=== PATIENT | male | born 1985 | race Caucasian/White ===

== ENCOUNTER 2017-09-07 17:08 | Emergency (ER) | payer BC ==
[~2017-09-07] VITALS: Ht 170.2 cm; Wt 91.0 kg
[2017-09-07 17:12] VITALS: BP 157/87; PULSE 124; RESP 16; TEMP 97.9; O2SAT 98
[2017-09-07] MEDS ORDERED: TETANUS/DIPHTHERIA TOXOID ADULT 0.5 ML VIAL IM ONE (17:45)
--- NOTE | 2017-09-07 18:05 | RADRPT ---
EXAM DATE/TIME: 09/07/2017 17:23 [place] COMPARISON: No previous studies available for comparison. INDICATIONS : stubbed left big toe, has pain MEDICAL HISTORY : None. SURGICAL HISTORY : None. ENCOUNTER: Initial ACUITY: 1 day PAIN SCORE: 10/10 LOCATION: Left big toe FINDINGS: Examination of the first digit of the left foot demonstrates no evidence of fracture or dislocation. No radiopaque foreign bodies are seen. The soft tissues demonstrates some faint radiopaque densitie s. CONCLUSION: No acute bony abnormalities. Faint radiopaque densities in the soft tissues of the medial great toe. Saran Solares MD on September 07, 2017 at 18:01 Board Certified Radiologist. This report was verified electronically.
[2017-09-07] MEDS ORDERED: DOXYCYCLINE HYCLATE 100 MG CAP PO ONE (18:30)
[2017-09-07] MEDS ORDERED: KETOROLAC TROMETHAMINE 60 MG/2 ML (IM) VIAL IM ONE (18:30)
[2017-09-07] MEDS ORDERED: DOXY100C PO (18:34)
--- NOTE | 2017-09-07 18:37 | PD ---
HPI Chief Complaint: Laceration/Skin Injury Time Seen by Provider: 17:34 Travel History International Travel<30 days: No Contact w/Intl Traveler<30days: No Traveled to known affect area: No History of Present Illness HPI this is a this is a 31-year-old male here with a laceration to the left great toe. [place] his toe was forced flexed and sustained a laceration across the toe. He now has constant, throbbing, nonradiating pain to the dorsal aspect of left great toe. He has approximately 1.5 linear laceration. He reports normal sensation of the toe. He is able to flex and extend the toe. No other injuries. Symptom severity is moderate. No aggravating or alleviating factors. PFSH Past Medical History Medical History: Denies Significant Hx Tetanus Vaccination: > 5 Years Influenza Vaccination: No Past Surgical History Surgical History: No Previous Surgery Social History Alcohol Use: Yes (OCCAS) Tobacco Use: Yes (1PPD) Substance Use: No Allergies-Medications (Allergen,Severity, Reaction): Coded Allergies: No Known Allergies (Unverified , 09/07/17) Reported Meds & Prescriptions Reported Meds & Active Scripts Active No Active Prescriptions or Reported Medications Review of Systems Except as stated in HPI: all other systems reviewed are Neg General / Constitutional: No: Fever Eyes: No: Visual changes HENT: No: Headaches Cardiovascular: No: Chest Pain or Discomfort Respiratory: No: Shortness of Breath Gastrointestinal: No: Abdominal Pain Genitourinary: No: Dysuria Physical Exam Narrative GENERAL: Alert and well-appearing 31-year-old male SKIN: Warm and dry.1.5CM laceration to the dorsal aspect of the great toe. No vascular tendon injury identified. HEAD: Normocephalic. EYES: No injection or drainage. NECK: Supple CARDIOVASCULAR: Regular rate and rhythm RESPIRATORY: Breath sounds equal bilaterally. No accessory muscle use. GASTROINTESTINAL: Abdomen soft, non-tender, nondistended. MUSCULOSKELETAL: No cyanosis, or edema. Left foot: 1.5CM linear laceration across the dorsal aspect of the toe. No vascular tendon injury identified. Patient is able to flex and extend the great toe against resistance. Normal sensation distally. Brisk cap refill. BACK: Nontender without obvious deformity. No CVA tenderness. Data Data Last Documented VS Vital Signs Date Time Temp Pulse Resp B/P (MAP) Pulse Ox O2 Delivery O2 Flow Rate FiO2 09/07/17 17:12 97.9 124 16 157/87 (110) 98 Orders Orders Toe (Min 2vws) (09/07/17 ) Tetanus/Diphtheria Tox Adult (Tetanus/Di (09/07/17 17:45) Doxycycline (Vibramycin) (09/07/17 18:30) Ketorolac Inj (Toradol Inj) (09/07/17 18:30) MDM Medical Decision Making Medical Screen Exam Complete: Yes Emergency Medical Condition: Yes Differential Diagnosis Toe laceration, tendon injury, retained foreign body, fracture Narrative Course 31-year-old male here with a laceration to his left great toe. The digit is neurovascularly intact. X-rays negative for fracture. It shows tiny radiopaque object possibly foreign body. The wound was extensively irrigated. Small particles appearing to be sand/broken shells removed from the wound. Laceration repair performed. Patient educated extensively regarding possibility of infection due to salt water exposure. He will put on doxycycline. He is to follow-up in 2 days for recheck. He verbalized understanding and agrees to plan Procedures Procedure Narrative LACERATION LOCATION: Left great toe dorsal aspect LENGTH: 1.5CM NUMBER OF STITCHES/JANAE: 4 REPAIR: The area of the laceration was prepped with Betadine and sterilely draped. Digital block using 1% lidocaine. The wound was copiously irrigated and explored without evidence of foreign body, tendon injury or neurovascular injury. Several small particles removed prior to closure. the wound was closed using 3-0 Ethilon. This was a single layer repair. A sterile dressing was applied. The patient was advised to keep the dressing clean and dry. Patient tolerated the procedure well. Diagnosis Primary Impression: Toe laceration Qualified Codes: S91.112A - Laceration without foreign body of left great toe without damage to nail, initial encounter Referrals: Carol Alexander DPM [employer] Additional Instructions: Antibiotics as directed. Do not submerge the wound in water. You may shower and wash the area daily. Scripts Doxycycline Hyclate (Doxycycline Hyclate) 100 Mg Cap 100 MG PO BID for Infection, #20 CAP 0 Refills Prov: Liz Lai 09/07/17 Disposition: 01 DISCHARGE HOME Condition: Stable Liz Lai Sep 07, 2017 18:37
== END 2017-09-07 18:56 | disposition home or self-care (01) ==
LOC: PHEFT 17:08
DX: S91.112A Laceration without foreign body of left great toe without damage to nail, initial encounter (principal); X58.XXXA Exposure to other specified factors, initial encounter; Y92.832 Beach as the place of occurrence of the external cause; F17.200 Nicotine dependence, unspecified, uncomplicated; Z23 Encounter for immunization
CPT/HCPCS: 12001; 73660; 90471; 90714; 96372; 99283; J1885